=== PATIENT | male | born 1930 | race Caucasian/White ===

== ENCOUNTER 2017-07-30 00:14 | Inpatient (IN) | payer MEDICARE, OTHER ==
[~2017-07-30] VITALS: Ht 172.7 cm; Wt 68.0 kg
[2017-07-30] VITALS (12 sets, daily range): BP systolic 112–154; BP diastolic 62–99
[~2017-07-30 00:14] MED LIST: ACET500T68 PO; AMLO-96 PO; ASPI-1471 PO; LOSA-54 PO; LOSA25TA50 PO; METF-411 PO; [UNRECOGNIZED DRUG - CODE] PO
[2017-07-30] MEDS ORDERED: KETAMINE HCL 200 MG/20 ML MDV ONE (06:42)
[2017-07-30] MEDS ORDERED: SUGAMMADEX SOD 200 MG/2 ML SDV ONE (06:50)
[2017-07-30] MEDS ORDERED: LIDOCAINE MPF 1% 5 ML VIAL ONE (06:50)
[2017-07-30] MEDS ORDERED: PROPOFOL EMUL(*) 10MG/ML 20 ML 20 ML ONE ×2 (06:50→12:50)
[2017-07-30] MEDS ORDERED: ROCURONIUM BROM 10 MG/ML 10 ML ONE (06:50)
[2017-07-30] MEDS ORDERED: ONDANSETRON 4 MG/2 ML VIAL ONE (06:50)
[2017-07-30] MEDS ORDERED: DEXAMETHASONE SOD 4 MG/ML VIAL ONE (06:50)
[2017-07-30] MEDS ORDERED: fentaNYL CITR 250 MCG/5 ML AMP ONE (06:50)
[2017-07-30] MEDS ORDERED: HYDROmorphone HCL 2 MG/ML SDV ONE (09:06)
[2017-07-30] MEDS ORDERED: MIDAZOLAM 2 MG/2 ML VIAL IVP PRN (09:30)
[2017-07-30] MEDS ORDERED: ACETAMINOPHEN 500 MG TAB PO ONE (09:30)
[2017-07-30] MEDS ORDERED: PREGABALIN 75 MG CAPSULE PO ONE (09:30)
[2017-07-30] MEDS ORDERED: FAMOTIDINE 20 MG TAB PO ONE (09:30)
[2017-07-30] MEDS ORDERED: NORMOSOL R SOLN(*) 1000 ML BAG 1,000 ML IV PRN (09:30)
[2017-07-30] MEDS ORDERED: LIDOCAINE/SOD BICARB 8.4% SYR ID ONE (09:30)
[2017-07-30] MEDS ORDERED: CLINDAMYCIN(*) 900 MG/NS 50 ML 50 ML IVPB ONE (09:30)
[2017-07-30] MEDS ORDERED: THROMBIN (BOVINE) 20,000 UNIT VIAL ONE ×2 (10:06→11:15)
[2017-07-30] MEDS ORDERED: PROPOFOL(*)1000 MG/100 ML VIAL 100 ML ONE (10:39)
[2017-07-30] MEDS ORDERED: NS 0.9% IRRIGATION 1000ML PLCT IR ONE (13:14)
[2017-07-30] MEDS ORDERED: BISACODYL 10 MG SUPP PR PRN (14:25)
[2017-07-30] MEDS ORDERED: FLUSH 10 ML SYR IVP PRN (14:25)
[2017-07-30] MEDS ORDERED: DIAZEPAM 5 MG TAB PO PRN (14:25)
[2017-07-30] MEDS ORDERED: HYDROmorphone HCL 2 MG/ML SDV IVP PRN (14:25)
[2017-07-30] MEDS ORDERED: LR(*) 1000 ML BAG 1,000 ML IV PRN (14:25)
[2017-07-30] MEDS ORDERED: MAGNESIUM HYDROXIDE* 30ML UDCP PO PRN (14:25)
[2017-07-30] MEDS ORDERED: ONDANSETRON 4 MG/2 ML VIAL IVP PRN (14:25)
[2017-07-30] MEDS ORDERED: ACETAMINOPHEN 500 MG TAB PO PRN (14:25)
[2017-07-30] MEDS ORDERED: diphenhydrAMINE 25 MG CAP PO PRN (14:25)
[2017-07-30] MEDS ORDERED: ACETAMINOPHEN(*)1000 MG/100 ML 100 ML IVPB PRN (14:25)
[2017-07-30] MEDS ORDERED: BENZOCAINE/MENTHOL 1 EACH LOZG PO PRN (14:25)
[2017-07-30] MEDS ORDERED: oxyCODONE HCL 5 MG CAP PO PRN (14:25)
--- NOTE | 2017-07-30 14:29 | RADIOLOGY IMAGING REPORT ---
FACILITY: [facility] PATIENT NAME: Arnav Barry : 1930 MR: [id number] V: [id number] EXAM DATE: ORDERING PHYSICIAN: SAMIR MERRILL TECHNOLOGIST: Location: [facility] - [place] Patient: Arnav Barry : 1930 Visit/Account:[id number] Date of Sevice: 07/30/2017 Exam type: LUMBAR SPINE 1 VIEW History: L2-L5 DISC HERNIATION, L4-L5 FUSION Comparison: Outside MR lumbar spine June 28, 2017. Findings: Three portable intraoperative cross table lateral prone views of the lumbar spine were submitted for interpretation demonstrating posterior lumbar interbody fusion at L4-5. IMPRESSION: 1. As above Report Dictated By: Alyssa Cooper MD at 07/30/2017 1:42 PM Report E-Signed By: Alyssa Cooper MD at 07/30/2017 2:24 PM WSN:[email or web address]
--- NOTE | 2017-07-30 14:36 | OPERATIVE REPORT 1 ---
EVENT DATE: July 30, 2017 SURGEON: Josh Gtuierrez MD ANESTHESIOLOGIST: Wojciech Gomez MD ANESTHESIA: General endotracheal anesthesia. OCCUPATIONAL WORK EXPERIENCE TEACHER: AMINA Cueva PREOPERATIVE DIAGNOSES 1. Lumbar spinal stenosis with degenerative L4-L5 spondylolisthesis. 2. Neurogenic claudication. POSTOPERATIVE DIAGNOSES 1. Lumbar spinal stenosis with degenerative L4-L5 spondylolisthesis. 2. Neurogenic claudication. PROCEDURES PERFORMED 1. L2 to L5 laminectomy. 2. L4-L5 posterolateral instrumented fusion. INTRAVENOUS FLUIDS 2200 mL ESTIMATED BLOOD LOSS 150 mL IMPLANTS USED Pedicle screws 6.5 mm x 50 mm from [employer] times four, 35 mm connecting rods from [employer] times two, and locking caps from [employer] times four. SPECIMENS None. DRAINS None. COMPLICATIONS None. DISPOSITION Post-anesthesia care unit. INDICATIONS FOR SURGERY Arnav Barry is an 87-year-old gentleman who presented to my clinic with a worsening history of bilateral lower extremity radiating pain, numbness, and tingling. In addition to this, he noted decreased walking tolerance secondary to his sensation of tiredness, heaviness, and weakness in bilateral lower extremities. He had tried physical therapy, medications, and activity modification with no significant improvement in his symptoms. His physical examination was essentially unremarkable, but his imaging studies showed a grade 1 degenerative spondylolisthesis at L4-L5 and severe spinal stenosis at L3 -L4 and L4-L5. Moderate stenosis was seen at L2-L3. Secondary to ongoing symptoms and failure to improve with nonsurgical, Mr. Barry was offered and elected to undergo lumbar laminectomy with L4-L5 posterolateral instrumented fusion secondary to the instability at that level. Prior to surgery, I explained in detail to the patient the possible risks of surgery. These included bleeding, infection, damage to surrounding structures, nerve root injury, spinal fluid leak, meningitis, need for further surgery, persistent and/or worsening pain, , blindness, sexual dysfunction, autonomic nervous system dysfunction, and other unforeseen medical and surgical complications. An understanding that spinal surgery is more predictive at improving extremity discomfort than axial spine pain was stressed. DESCRIPTION OF PROCEDURE On the day of surgery, the patient was met in the preoperative hold area, and all questions were answered. His operative site was identified and marked by myself. Patient was brought in good condition to the operating room, and after succumbing to anesthesia, was turned into the prone position on the Farhan table. All bony protuberances and soft tissues were well padded in the standard fashion. Care was taken to maintain appropriate perfusion pressures during anesthesia. Preoperative antibiotics were administered according to the appropriate timing schedule. At the conclusion of the procedure, sponge and needle counts were correct times two. Final timeout was undertaken by members of the operating team to confirm correct patient, correct levels, and correct surgery. The patient was then prepped and draped in the standard sterile orthopedic fashion. A midline incision was made over the intended surgical levels. Sharp dissection was carried out down to the spinous processes, and the fascia was incised just lateral to the spinous processes. A lateral radiograph was obtained to confirm correct spinal levels. Soft tissues were elevated off the posterior elements in a subperiosteal manner. Starting points for pedicle screws were identified at the L4 and L5 level bilaterally. This was accomplished by removing soft tissues from the laminas and then up the pars intra-articularis and lateral to the facet joint, also exposing the entire transverse process bilaterally at both L4-L5. Self-retaining retractors were placed, and thrombin-soaked sponges were then placed into these lateral gutters. A Leksell rongeur was used to remove the spinous processes of L2, L3, and L4. Once this was accomplished, the midline decompression was performed by first thinning the laminae down the midline with a combination of the Leksell rongeur and a high-speed marielena. Once this was accomplished, a Greene curette was used to enter the canal by undermining the superior insertion of the ligamentum flavum from the inferior aspect of the L4 lamina. The Parma elevator was used to separate the dura from any bony or soft tissue adhesions prior to use of the Kerrison punch. A 4.0 Kerrison punch was used to perform midline decompression. I then performed bilateral lateral recess decompressions at L2- L3, L3-L4, and L4-L5, taking care to remove as much overgrown facet and ligamentum flavum as necessary in the lateral recesses to thoroughly decompress the nerve roots at all three levels. At the conclusion of the decompression, a Parma elevator was passed down the lateral recesses and out the foramina, and the decompression was found to be excellent. Meticulous hemostasis was obtained , and we then turned our attention to placement of pedicle screws. The thrombin -soaked sponges were removed from the wound, and the pedicle screws starting points were identified. A high-speed marielena was used to decorticate the overlying bone, and a Lenke-type probe was then used to advance through the pedicle against resistance. A ball-tip feeler was used to test each pedicle, testing medially, laterally, superiorly, inferiorly, as well as distally to confirm absence of bony breaching. Pedicle screws 6.5 mm x 50 mm were selected for bilateral screw placement at both L4 and L5. Excellent purchase was obtained. Connecting rods 35 mm were selected and placed within the tulips. Locking caps were placed and tightened, and some compression was applied. Locking caps were then finally tightened. The wound was then irrigated with copious sterile saline solution. The transverse processes of L4 and L5 were decorticated bilaterally. The local bone that was harvested from the laminectomy was run through a mill, and this morselized bone was then packed into the lateral gutters over the decorticated transverse processes. A lateral x-ray was obtained to confirm appropriate placement of instrumentation, and the wound was then closed in layers using interrupted sutures for the deep fascia, inverted interrupted sutures for the subcutaneous tissue, and then a running subcuticular skin stitch. Sponge and needle counts were correct times two. POSTOPERATIVE CARE PLAN Mr. Barry will remain in the hospital at least overnight. He will be evaluated by physical therapy, and once he has passed physical therapy, is tolerating p.o. intake, and has adequate pain control, he will be discharged home. He will then follow up with me two weeks postop for wound check and examination. JOSÉ
[2017-07-30] MEDS: APAP/HYDROCODONE 325/5 TAB PO PRN ×3 (15:31→21:04)
--- NOTE | 2017-07-30 16:24 | Hospitalist Progress Note ---
Subjective Progress Notes Subjective Patient seen post-op. Reviewed PMHx (type 2 DM, HTN) and medications (losartan- HCTZ, metformin). At present he reports doing well. He denies any CP/SOB/N/V. Physical Exam Vital Signs Date Time Temp Pulse Resp B/P (MAP) Pulse Ox O2 Delivery O2 Flow Rate FiO2 07/30/17 15:44 93 07/30/17 15:30 64 12 134/79 (97) Nasal Cannula 2.0 07/30/17 15:15 97.5 Intake and Output 07/31/17 07:00 Intake Total 1850 ml Output Total 50 ml Balance 1800 ml Intake IV Total 1850 ml Output Estimated Blood Loss 50 ml General Appearance: Alert, Awake Cardiovascular: Regular Rate and Rhythm (distant tones) Respiratory: Clear to Auscultation (anteriorly) Item Value Date Time Whole Blood Glucose 147 mg/DL H 07/30/17 0911 Assessment and Plan Problems: (1) HTN (hypertension) Status: Chronic Assessment & Plan: Will monitor his BPs and resume his medications as needed. (2) DM (diabetes mellitus), type 2 Status: Chronic Assessment & Plan: Will place on ADA diet, resume metformin in AM, monitor glucoses, and use SSI as needed. Exam Sepsis Risk: No Definite Risk FEI BOTELLO MD Jul 30, 2017 16:24
[2017-07-30] MEDS: CLINDAMYCIN(*) 900 MG/NS 50 ML 50 ML IVPB SCH (17:41)
[2017-07-30] MEDS: INSULIN HUM LISPRO 100 UN/ML 3 ML VIAL SUBQ PRN ×2 (18:55→20:58)
[2017-07-30] MEDS: metFORMIN HCL 500 MG TAB PO SCH (20:56)
[2017-07-30] MEDS: DOCUSATE SODIUM 100 MG CAP PO SCH (20:56)
[2017-07-31] VITALS (7 sets, daily range): BP systolic 104–134; BP diastolic 48–75; Ht 172.7 cm; Wt 68.0 kg
[2017-07-31] MEDS: CLINDAMYCIN(*) 900 MG/NS 50 ML 50 ML IVPB SCH ×2 (03:12→10:50)
[2017-07-31] MEDS: APAP/HYDROCODONE 325/5 TAB PO PRN ×2 (05:59→20:38)
[2017-07-31 06:09] LABS: PLATELET COUNT, AUTOMATED 190 K/uL (150-450)
--- NOTE | 2017-07-31 08:02 | Hospitalist Progress Note ---
Subjective Progress Notes Subjective He has no concerns this morning. He had no acute events overnight. Patient Complains of: Cardiovascular: No: Chest Pain Respiratory: No: Shortness of Breath Physical Exam Vital Signs Date Time Temp Pulse Resp B/P (MAP) Pulse Ox O2 Delivery O2 Flow Rate FiO2 07/31/17 07:47 98.4 65 14 128/68 (88) 94 Room Air 07/31/17 07:44 1.0 General Appearance: Alert, Awake, No Acute Distress, Afebrile Neuro: No Gross deficits Cardiovascular: Regular Rate and Rhythm Respiratory: No Respiratory Distress, Clear to Auscultation Psych: Alert & Oriented X3, Appropriate Mood & Affect Result Diagram: 07/31/1752407/31/17524 Assessment and Plan Problems: (1) HTN (hypertension) Status: Chronic Assessment & Plan: Will monitor his BPs and resume his medications as needed. (2) DM (diabetes mellitus), type 2 Status: Chronic Assessment & Plan: Will place on ADA diet, resume metformin in AM, monitor glucoses, and use SSI as needed. Exam Sepsis Risk: No Definite Risk DAVID BALDERAS GAS CUTTING MACHINE OPERATOR Jul 31, 2017 08:01
--- NOTE | 2017-07-31 08:40 | RADIOLOGY IMAGING REPORT ---
FACILITY: [facility] - [place] PATIENT NAME: Arnav Barry : 1930 MR: [id number] V: [id number] EXAM DATE: ORDERING PHYSICIAN: SAMIR MERRILL TECHNOLOGIST: Location: [facility] - [place] Patient: Arnav Barry : 1930 Visit/Account:[id number] Date of Sevice: 07/31/2017 Exam type: LUMBAR SPINE 2 OR 3 VIEW History: s/p lami Comparison: July 30, 2017. Findings: Two views of lumbar spine demonstrate postsurgical changes from posterior lumbar interbody fusion at L4-5. This mild disc space narrowing at L4-5 and L3-4 and a 5 mm anterior listhesis of L4 with respe ct L5 that appears unchanged. Moderate spondylotic changes throughout the visualized lower thoracic spine and L1-2 also noted. There are moderate vascular calcifications in the abdominal aorta. IMPRESSION: 1. Post surgical changes from posterior lumbar interbody fusion at L4-5 as described above Report Dictated By: Alyssa Cooper MD at 07/31/2017 8:25 AM Report E-Signed By: Alyssa Cooper MD at 07/31/2017 8:35 AM WSN:[email or web address]
[2017-07-31] MEDS: LOSARTAN POTASSIUM 50 MG TAB PO SCH (09:38)
[2017-07-31] MEDS: metFORMIN HCL 500 MG TAB PO SCH ×2 (09:38→20:38)
[2017-07-31] MEDS: DOCUSATE SODIUM 100 MG CAP PO SCH ×2 (09:38→20:38)
[2017-07-31] MEDS: INSULIN HUM LISPRO 100 UN/ML 3 ML VIAL SUBQ PRN ×3 (11:01→20:43)
[2017-08-01 04:07] VITALS: BP 115/61
[2017-08-01] MEDS: APAP/HYDROCODONE 325/5 TAB PO PRN ×2 (05:50→11:04)
[2017-08-01 07:18] VITALS: BP 123/71
[2017-08-01] MEDS ORDERED: DOCU240C84 PO (07:49)
[2017-08-01] MEDS ORDERED: DIA5 PO (07:50)
[2017-08-01] MEDS ORDERED: LOR5/325 PO (07:50)
[2017-08-01] MEDS: HYDROCHLOROTHIAZIDE 25 MG TAB PO SCH ×2 (09:00→09:55)
--- NOTE | 2017-08-01 09:23 | Hospitalist Progress Note ---
Subjective Progress Notes Subjective He has no concerns this morning. He had no acute events overnight. He would like to go home today. Patient Complains of: Cardiovascular: No: Chest Pain Respiratory: No: Shortness of Breath Physical Exam Vital Signs Date Time Temp Pulse Resp B/P (MAP) Pulse Ox O2 Delivery O2 Flow Rate FiO2 08/01/17 07:25 91 08/01/17 07:18 97.4 81 14 123/71 (88) Room Air 07/31/17 08:02 Intake and Output 08/02/17 07:00 Intake Total 240 ml Balance 240 ml Intake Oral 240 ml General Appearance: Alert, Awake, No Acute Distress, Afebrile Neuro: No Gross deficits Cardiovascular: Regular Rate and Rhythm Respiratory: No Respiratory Distress, Clear to Auscultation Psych: Alert & Oriented X3, Appropriate Mood & Affect Result Diagram: 07/31/17 0525 07/31/17 0525 Assessment and Plan Problems: (1) HTN (hypertension) Status: Chronic Assessment & Plan: He is on chronic treatment with Amlodipine, Losartan and Hydrochlorothiazide. (2) DM (diabetes mellitus), type 2 Status: Chronic Assessment & Plan: He is on chronic treatment with metformin. Exam Sepsis Risk: No Definite Risk DAVID BALDERAS Aug 01, 2017 09:23
[2017-08-01] MEDS: DOCUSATE SODIUM 100 MG CAP PO SCH (09:55)
[2017-08-01] MEDS: metFORMIN HCL 500 MG TAB PO SCH (09:55)
[2017-08-01] MEDS: LOSARTAN POTASSIUM 50 MG TAB PO SCH ×2 (09:56→09:58)
[2017-08-01] MEDS: INSULIN HUM LISPRO 100 UN/ML 3 ML VIAL SUBQ PRN (12:26)
== END 2017-08-01 14:20 | disposition home or self-care (01) | DRG 460 ==
LOC: OR 00:14 → MED 15:20
PROVIDERS: ADMIT Orthopaedic Surgery; ATTEND Orthopaedic Surgery
PROC: 01NB0ZZ Release Lumbar Nerve, Open Approach (ICD-10-PCS; 2017-07-30)
PROC: 0SG0071 Fusion of Lumbar Vertebral Joint with Autologous Tissue Substitute, Posterior Approach, Posterior Column, Open Approach (ICD-10-PCS; principal; 2017-07-30 10:28)
DX: M48.062 Spinal stenosis, lumbar region with neurogenic claudication (principal); M43.16 Spondylolisthesis, lumbar region; E11.9 Type 2 diabetes mellitus without complications; I10 Essential (primary) hypertension; E78.5 Hyperlipidemia, unspecified; Z79.84 Long term (current) use of oral hypoglycemic drugs
CPT/HCPCS: 36415; 36416; 72020; 72100; 82310; 82374; 82435; 82565; 82947; 82948; 84132; 84295; 84520; 85025; 86850; 86900; 86901; 97161; J1100; J1170; J2001; J2405; J2704; J3010; J3490; J7120